=== PATIENT | female | born 1965 | race Caucasian/White ===

== ENCOUNTER 2021-09-25 12:03 | Outpatient (CLI) | payer OTHER, SELFPAY ==
--- NOTE | ~2021-09-25 | XR_ITS ---
EXAMINATION: XR foot RT min 3V DATE: 09/25/2021 12:37 INDICATION: Right foot pain TECHNIQUE: Dorsoplantar, lateral, and 2 oblique views of the right foot were obtained. COMPARISON: 02/10/2010 FINDINGS: There is no fracture, dislocation, or subluxation. Mild osteoarthritis is noted in several interphalangeal joints. Soft tissues are unremarkable. IMPRESSION: 1. No acute osseous abnormality. Reviewed, dictated and finalized at location B. T RELATIONS MANAGER
== END 2021-09-25 12:04 | disposition home or self-care (01) ==
PROVIDERS: PCP Internal Medicine; Visit Provider Orthopaedic Surgery
DX: M79.671 Pain in right foot (principal)
CPT/HCPCS: 73630

== ENCOUNTER 2022-01-25 01:55 | Day surgery (SDC) | payer OTHER, SELFPAY ==
[2022-01-17 12:26] VITALS: BMI 22.9
--- NOTE | 2022-01-17 12:36 | PC.NURSE ---
Report to the Outpatient Waiting Room, entrance under the green pavilion located off [facility], at time 0600 on date 01/25/22. OR Time: 0730. - You and your visitor will be asked a series of questions to screen for COVID 19 for your protection. - A mask is required within the hospital. One visitor will be allowed to accompany the patient into the hospital. Patients visitor will be instructed to remain with patient at all times or leave the building. We will allow the visitor to come back to the postoperative area when patient is ready. Preoperative COVID Testing Requirements: No COVID Test needed if: (proof is required; if not received patient will have Rapid Test prior to entry) - Patient has received COVID Vaccine at least 14 days prior to procedure date or - Patient has positive COVID test result within last 90 days of surgery date. COVID Test needed if above criteria is not met Patients may have clear liquids (water, carbonated beverages, clear teas, apple juice) until 3 hours prior to surgery with a maximum of 20 ounces. - No food from midnight until time of surgery Take the following medications with a SIP of water the morning of surgery: ESTRADIOL, MEDROXYPROGESTERONE Medications to discontinue per physician: VITAMINS/SUPPLEMENTS Date to take last dose: 01/21/22 Please no make-up, nail zambian, hairspray, perfume, deodorant, or body powder the day of surgery. No jewelry (including any body piercings) or valuables the day of surgery, leave them at home. Please take a shower or bath the night before, or the morning of, surgery with an antibacterial soap. Wear comfortable, loose fitting clothing. - Jewelry must be removed prior to entering the operating room. Rings and piercings that are not removed may be cut off. - The hospital will not accept responsibility for valuables. - Please leave all valuables, including medications, at home the day of surgery. If you are going home after surgery, a licensed hog driver must drive you home. - NO public transportation without another adult. - We recommend that an adult stay with you for 24 hours following discharge. - We also recommend that you do not drive, make important decision, drink alcoholic beverages, or take any drugs that were not prescribed by your health care provider for at least 24 hours after your discharge time. Follow any additional instructions given to you from your surgeon. Telephone instructions given to ACE KILPATRICK and asked if any additional questions and then verbalized understanding. Patient advised to call surgeon office or pre surgery nurse liaison [phone] if any additional questions.
--- NOTE | 2022-01-24 12:40 | WPDANESEPPF ---
Anes - Initial Pre Proc Eval Procedure: Operation Date: 01/25/22 07:30 Proposed Procedures p Right Foot Bunionette Correction - Anthony Andrade MD Date/Time: 01/24/22 12:40 Surgeon: Anthony Andrade MD Pre Op Diagnosis: right foot bunionette Patient Data Age: 56 Gender: F Height: 1.65 m Weight: 62.6 kg Allergies Allergy/AdvReac Type Severity Reaction Status Date / Time Sulfa (Sulfonamide Allergy Severe GI UPSET Verified 01/17/22 12:23 Antibiotics) latex Allergy Mild RASH Verified 01/17/22 12:23 erythromycin base AdvReac Severe GI UPSET Verified 01/17/22 12:23 adhesive AdvReac Blister Verified 01/17/22 12:23 Home Medications Medication Instructions Recorded Confirmed Type estradiol 1 mg tablet 1 mg PO DAILY 12/24/19 01/17/22 History medroxyprogesterone 2.5 mg tablet 2.5 mg PO DAILY 12/24/19 01/17/22 History triazolam 0.25 mg tablet 0.25 mg PO .[facility] #90 tablet 06/21/20 01/17/22 Rx ascorbate calcium (vitamin C) 1 tablet PO DAILY 09/29/21 01/17/22 History calcium acetate 1 tablet PO DAILY 09/29/21 01/17/22 History cholecalciferol (vitamin D3) 1 tablet PO DAILY 09/29/21 01/17/22 History multivitamin 1 tablet PO DAILY 09/29/21 01/17/22 History zinc acetate 1 tablet PO DAILY 09/29/21 01/17/22 History Patient hx anesthesia problems: none Family hx anesthesia problems: none Results Review: All pre-operative results and documents have been reviewed as part of the pre-operative evaluation. [facility] Past Medical History Medical History (Updated 01/24/22 @ 12:41 by Cortez Wagner MD) Bunionette of right foot Callus of foot Claustrophobia Hyperlipidemia Metatarsalgia, right foot Surgical History Surgical History History of ankle surgery Plates and screws-1986 Hardware removal -1990 Family History Family History Sibling Family history of malignant neoplasm of brain Family history of lymphoma Social History Social History Smoking status: Former smoker Tobacco type: cigarettes Additional smoking assessment comments: IN EARLY Alcohol intake: current Drinks per week: 6 Substance use: never Substance use type: does not use Living arrangements: with family 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 Informed Consent: The patient's anesthetic plan and its attendant risks and benefits were discussed with the patient/family/POA. Questions were solicited and answers provided to the satisfaction of the patient/family/POA.
[2022-01-25] VITALS (7 sets, daily range): BP systolic 125–152; BP diastolic 60–77; PULSE 80–103; RESP 12–18; TEMP 36–36.2; O2SAT 96–100
--- NOTE | ~2022-01-25 | XR_ITS ---
EXAMINATION: XR surgery orthopedic EXAM DATE: 01/25/2022 08:38 INDICATION: Right bunionectomy correction. TECHNIQUE: Fluoroscopy used during right foot surgery performed by Dr. Anthony Andrade MD. Radiol ogist was not present for the imaging or procedure. Total fluoroscopic time of 3 seconds. The DAP f or this procedure was 0.24 cGycm2. A total of 4 images sent to PACS from the exam. There is no prio r study for comparison. FINDINGS: There is right 5th metatarsal neck osteotomy, overlying surgical defect. Correlate with p omega note. IMPRESSION: Fluoroscopy used during right foot surgery. Reviewed, dictated and finalized at location A. ITAL TECHNICIAN
[2022-01-25] MEDS: LACTATED RINGERS 1,000 ML 30 ML IV CONT ×2 (06:45→08:28)
--- NOTE | 2022-01-25 07:09 | WPDHPUPDATE1 ---
History and Physical Update Update Date/Time: 01/25/22 07:09 History and Physical has been reviewed, including an updated exam of the patient. There are NO changes in the patient's condition. Risks, benefits, and alternatives have been discussed and questions answered. Patient agrees to proceed with procedure.
[2022-01-25] MEDS: ceFAZolin 2 GM/D5W 50 ML 2 GM/50 ML BAG IVPB (07:36)
[2022-01-25] MEDS: ACETAMINOPHEN 500 MG TABLET 1000 MG PO (07:42)
[2022-01-25] MEDS: KETOROLAC 15 MG/ML VIAL (*BKC) IV PUSH (07:42)
--- NOTE | 2022-01-25 07:48 | SUR.PREOP ---
PT COMPLETED AT [facility] ON 01/21/22 PRIOR TO SURGERY FOR SINUS INFECTION. CRUTCH TRAINING AND IS TEACHING DONE.
[2022-01-25] MEDS: BUPIVACAINE HCL 0.5% PF 30 ML VIAL INFILTRATE (07:57)
--- NOTE | 2022-01-25 08:47 | W.PM.PROC2 ---
Procedure Note - Detailed Date of Procedure 01/25/22 Pre-op Diagnosis right foot bunionette Post-op Diagnosis Same Procedure Performed Right foot bunionette correction Surgeon Anthony Andrade MD Benefits Assistant 1st administrative assistant coordinator Anesthesia General Indications 56-year-old woman with a right foot bunionette deformity. Severe pain on the lateral border of the foot as well as a persistent callus on the plantar aspect. Unrelieved with conservative measures. Presents now for operative treatment. Description of Procedure Full discussion of the risks, benefits and alternatives of surgery was had. Questions answered. Informed consent given by the patient. The operative extremity was marked in the preoperative holding area. Patient received intravenous antibiotics. She is brought to the operating room and underwent general anesthetic by the anesthesia team. Positioned supine on the operating room table. Right foot prepped draped usual sterile surgical fashion using a ChloraPrep skin solution. Foot ankle exsanguinated and a calf tourniquet inflated to 250 mmHg. Local anesthetic with 0.5% Marcaine plain. A longitudinal incision made over the lateral eminence of the 5th metatarsal with 15 blade knife. Hemostasis controlled electrocautery. Sensory nerve elements protected. Lateral capsule then exposed. Capsulotomy performed. Lateral eminence resection with the sagittal saw. Chevron shaped osteotomy then performed 5th metatarsal head from lateral to medial. Capital fragment was then translated medially impacted back onto the shaft insuring that we dorsally translated the head to relieve the plantar pressure. Fixation achieved with a 2.0 mm treatment pinned. Image intensification confirmed alignment. Over lying lateral 5th metatarsal removed with sagittal saw on rongeur. Wound thoroughly irrigated with solution. Capsule then closed with 2-0 Vicryl interrupted suture. Subcutaneous tissue repaired with 3-0 Monocryl interrupted suture and skin repaired with 4-0 nylon running suture. Sterile dressings applied. Tourniquet released in good capillary refill noted. Patient awoke from anesthesia, extubated and taken to the recovery room in stable condition. All sponge needle and instrument counts correct the in the case. Implants 2.0 mm trim it Estimated Blood Loss -5.0 Tourniquet Time 40 Drains No Packing No Pathology None sent Complications None Condition Stable Disposition PACU
== END 2022-01-25 09:50 | disposition home or self-care (01) ==
PROVIDERS: PCP Internal Medicine; Visit Provider Orthopaedic Surgery
PROC: (CPT 28299; principal; 2022-01-25 07:30)
DX: M21.621 Bunionette of right foot (principal); M25.571 Pain in right ankle and joints of right foot; M77.41 Metatarsalgia, right foot; Z87.891 Personal history of nicotine dependence
CPT/HCPCS: 28308; A9270; C1713; J0690; J1100; J1885; J2250; J2405; J2704; J3010; J7120

== ENCOUNTER 2022-03-05 12:09 | Outpatient (CLI) | payer OTHER, SELFPAY ==
--- NOTE | ~2022-03-05 | XR_ITS ---
EXAMINATION: XR foot RT min 3V DATE: 03/05/2022 12:20 INDICATION: Lateral right foot surgery TECHNIQUE: Dorsoplantar, oblique and lateral views of the right foot were obtained. COMPARISON: 02/14/2022 FINDINGS: There is small amount of callus formation which does not yet appear solidly bridging associate with a alignment osteotomy at the distal neck of the fifth metatarsal with 2 mm dorsal/medial displacement. There is additional callus formation also not yet solidly bridging at an oblique osteotomy versus fr acture at the mid diaphysis of the fourth metatarsal with 2-3 mm dorsal displacement. No other fractu res identified. Minimal to mild osteoarthritis at a few of the tarsal metatarsal and interphalangeal joints. IMPRESSION: 1. Healing osteotomy at the neck of the fifth metatarsal and healing osteotomy versus fracture at the mid diaphysis of the fourth metatarsal. Reviewed, dictated and finalized at location A.
== END 2022-03-05 12:10 | disposition home or self-care (01) ==
PROVIDERS: PCP Internal Medicine; Visit Provider Orthopaedic Surgery
DX: M79.671 Pain in right foot (principal)
CPT/HCPCS: 73630

== ENCOUNTER 2022-04-02 13:14 | Outpatient (CLI) | payer OTHER, SELFPAY ==
--- NOTE | ~2022-04-02 | XR_ITS ---
EXAM: XR_[id number]_CR HISTORY: Pain in right foot . COMPARISON: 03/05/2022. FINDINGS: Decreased mineralization. No acute fracture or dislocation. Apparent old fractures of the right fourth and fifth metatarsal shafts, with osseous bridging. No lytic or blastic lesion. Plantar enthesopathy. No erosion or periosteal change. Soft tissues within normal limits IMPRESSION: No acute osseous finding in the right foot. Old fractures of the right fourth and fifth m etatarsal shafts, healed in deformity. Reviewed, dictated and finalized at location K. IMPRESSION: No acute osseous finding in the right foot. Old fractures of the ri ght fourth and fifth metatarsal shafts, healed in deformity.
== END 2022-04-02 13:15 | disposition home or self-care (01) ==
PROVIDERS: PCP Internal Medicine; Visit Provider Orthopaedic Surgery
DX: M79.671 Pain in right foot (principal)
CPT/HCPCS: 73630

== ENCOUNTER 2022-08-13 13:44 | Outpatient (CLI) | payer OTHER, SELFPAY ==
--- NOTE | ~2022-08-13 | XR_ITS ---
EXAMINATION: XR foot RT min 3V DATE: 08/13/2022 14:00 INDICATION: Right foot pain TECHNIQUE: Dorsoplantar, two oblique and lateral views of the right foot were obtained. COMPARISON: 04/02/2022 and 03/05/2022 FINDINGS: Interval healing of the diaphyseal fractures of the fourth and fifth metatarsals which remain in near anatomic alignment. No new fractures identified. Minimal to mild osteoarthritis at a few of the tars al metatarsal and interphalangeal joints. No erosions to suggest inflammatory arthritis. Very small p lantar calcaneal spur. Soft tissues are unremarkable. IMPRESSION: 1. Healed diaphyseal fractures of the right fourth and fifth metatarsals in near-anatomic alignment. No acute osseous abnormality. Reviewed, dictated and finalized at location A. IMPRESSION: 1. Healed diaphyseal fractures of the right fourth and fifth metatarsals in lety r-anatomic alignment. No acute osseous abnormality.
== END 2022-08-13 13:45 | disposition home or self-care (01) ==
PROVIDERS: PCP Internal Medicine; Visit Provider Orthopaedic Surgery
DX: S92.341D Displaced fracture of fourth metatarsal bone, right foot, subsequent encounter for fracture with routine healing (principal); S92.351D Displaced fracture of fifth metatarsal bone, right foot, subsequent encounter for fracture with routine healing; X58.XXXD Exposure to other specified factors, subsequent encounter
CPT/HCPCS: 73630

== ENCOUNTER 2022-12-17 13:09 | Outpatient (CLI) | payer OTHER, SELFPAY ==
--- NOTE | ~2022-12-17 | XR_ITS ---
EXAM: XR_FOOTSTNDR3_CR DATE: 12/17/2022 13:22 HISTORY: Follow up . COMPARISON: 04/02/2022. FINDINGS: Decreased mineralization. Old fractures of the fourth and fifth metatarsals, healed in sli ght deformity. No acute fracture or dislocation. No lytic or blastic lesion. Minimal plantar enthesop athy. Joint spaces and physes are maintained. No erosion or periosteal change. Soft tissues within no rmal limits. IMPRESSION: Old fractures of the fourth and fifth metatarsals, healed in slight deformity. Plantar en thesopathy. Reviewed, dictated and finalized at location K. STACK PHP DEVELOPER IMPRESSION: Old fractures of the fourth and fifth metatarsals, healed in slight deformity. Plantar enthesopathy.
== END 2022-12-17 13:10 | disposition home or self-care (01) ==
LOC: ANHBWCIMG 13:10
PROVIDERS: PCP Internal Medicine; Visit Provider Orthopaedic Surgery
DX: M79.671 Pain in right foot (principal); M77.31 Calcaneal spur, right foot
CPT/HCPCS: 73630

== ENCOUNTER 2023-04-03 00:51 | Day surgery (SDC) | payer OTHER, SELFPAY ==
[2023-03-21 08:39] VITALS: BMI 23.4
--- NOTE | 2023-04-02 16:07 | PM.HPGS ---
History of Present Illness History of Present Illness Consent: Risks, benefits, and alternatives have been discussed and questions answered. Patient agrees to proceed with procedure. Chief complaint: family hx of colon polyps and colon cancer Narrative: Adrienne Morgan is a 57 year old female referred for colon cancer screening. Relatives on her mother side of the family have had colon cancer. 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 Encounter for postoperative care Hyperlipidemia Metatarsalgia, right foot Right foot pain Surgical History Surgical History History of ankle surgery Plates and screws-1986 Hardware removal -1990 Family History Family History Sibling Family history of malignant neoplasm of brain Family history of lymphoma Social History Social History Smoking packs per day: 0.25 Smoking cigarettes per day: 5.0 Years smoked: 8 Smoking pack-years: 2.00 Smoking status: Former smoker Tobacco type: cigarettes Additional smoking assessment comments: IN EARLY Alcohol intake: current Drinks per week: 6 Alcohol use details: on occasion Substance use: current Substance use type: marijuana Living arrangements: with family Occupation/Education: occupation 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[place] Gender identity (if verbalized by the patient): Female Spiritual care concerns: No Meds Home Medications and Allergies Home Medications Medication Instructions Recorded Confirmed Type estradiol 1 mg tablet 1 mg PO DAILY 12/24/19 03/21/23 History medroxyprogesterone 2.5 mg tablet 2.5 mg PO DAILY 12/24/19 03/21/23 History triazolam 0.25 mg tablet 0.25 mg PO .[facility] [place] #[facility] tabs 06/21/20 03/21/23 Rx calcium acetate 1 tablet PO DAILY 09/29/21 03/21/23 History cholecalciferol (vitamin D3) 1 tablet PO DAILY 09/29/21 03/21/23 History multivitamin 1 tablet PO DAILY 09/29/21 03/21/23 History Hair, Skin and Nails (biotin) 1 tab-cap PO DAILY 03/21/23 03/21/23 History pghvucp-[id number]-novw 1 tab-cap PO DAILY 03/21/23 03/21/23 History Allergies Allergy/AdvReac Type Severity Reaction Status Date / Time Sulfa (Sulfonamide Allergy Severe GI UPSET Verified 04/03/23 08:22 Antibiotics) latex Allergy Mild RASH Verified 04/03/23 08:22 erythromycin base AdvReac Severe GI UPSET Verified 04/03/23 08:22 adhesive AdvReac Unknown Blister Verified 04/03/23 08:22 Exam Resp: Auscultation: clear to auscultation bilaterally Cardio: Rate: regular rate Rhythm: regular rhythm GI: GI Palp: Yes Soft to palpation and No Tenderness to palpation present (GI) Assessment and Plan Assessment and plan (1) Colon cancer screening: Code(s): Z12.11 - Encounter for screening for malignant neoplasm of colon Status: Acute Assessment and Plan: Colonoscopy with possible biopsy or polypectomy or cautery or injection of substances.
[2023-04-03 08:24] VITALS: BP 143/84; PULSE 80; RESP 18; TEMP 36.3; O2SAT 100
[2023-04-03] MEDS: LACTATED RINGERS 1,000 ML 150 ML IV CONT (08:36)
--- NOTE | 2023-04-03 09:19 | WPDANESEPPF ---
Anes - Initial Pre Proc Eval Procedure: Operation Date: 04/03/23 09:45 Proposed Procedures p Screening Colonoscopy - Huber Mcelroy MD Date/Time: 04/03/23 09:19 Surgeon: Huber Mcelroy MD Pre Op Diagnosis: family hx of colon polyps and colon cancer Patient Data Age: 57 Gender: F Height: 1.65 m Weight: 65.8 kg Last Vital Signs Temp 97.3 F L 04/03/23 08:24 Pulse 80 04/03/23 08:24 Resp 18 04/03/23 08:24 BP 143/84 H 04/03/23 08:24 Pulse Ox 100 04/03/23 08:24 O2 Del Method Room Air 04/03/23 08:24 Allergies Allergy/AdvReac Type Severity Reaction Status Date / Time Sulfa (Sulfonamide Allergy Severe GI UPSET Verified 04/03/23 08:22 Antibiotics) latex Allergy Mild RASH Verified 04/03/23 08:22 erythromycin base AdvReac Severe GI UPSET Verified 04/03/23 08:22 adhesive AdvReac Unknown Blister Verified 04/03/23 08:22 Home Medications Medication Instructions Recorded Confirmed Type estradiol 1 mg tablet 1 mg PO DAILY 12/24/19 03/21/23 History medroxyprogesterone 2.5 mg tablet 2.5 mg PO DAILY 12/24/19 03/21/23 History triazolam 0.25 mg tablet 0.25 mg PO .[facility] #90 tabs 06/21/20 03/21/23 Rx calcium acetate 1 tablet PO DAILY 09/29/21 03/21/23 History cholecalciferol (vitamin D3) 1 tablet PO DAILY 09/29/21 03/21/23 History multivitamin 1 tablet PO DAILY 09/29/21 03/21/23 History Hair, Skin and Nails (biotin) 1 tab-cap PO DAILY 03/21/23 03/21/23 History uvforwv-rxbryqyfy-ounu 1 tab-cap PO DAILY 03/21/23 03/21/23 History Patient hx anesthesia problems: none Family hx anesthesia problems: none Results Review: All pre-operative results and documents have been reviewed as part of the pre-operative evaluation. 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 Encounter for postoperative care Hyperlipidemia Metatarsalgia, right foot Right foot pain Surgical History Surgical History History of ankle surgery Plates and screws-1986 Hardware removal -1990 Family History Family History Sibling Family history of malignant neoplasm of brain Family history of lymphoma Social History Social History Smoking packs per day: 0.25 Smoking cigarettes per day: 5.0 Years smoked: 8 Smoking pack-years: 2.00 Smoking status: Former smoker Tobacco type: cigarettes Additional smoking assessment comments: IN EARLY Alcohol intake: current Drinks per week: 6 Alcohol use details: on occasion Substance use: current Substance use type: marijuana Living arrangements: with family Occupation/Education: occupation 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 Informed Consent: The patient's anesthetic plan and its attendant risks and benefits were discussed with the patient/family/POA. Questions were solicited and answers provided to the satisfaction of the patient/family/POA.
--- NOTE | 2023-04-03 09:24 | SUR.PREOP ---
829: DR TUCKER NOTIFIED PT HAD A HALF OF A BRATWURST YESTERDAY AT 1000, THEN BEGAN CLEAR LIQUID DIET AND BOWEL PREP THE REST OF YESTERDAY, STATES STOOLS ARE LIQUID YELLOW, NO NEW ORDERS RECEIVED, DR TUCKER TO SEE PT.
[2023-04-03 09:54] VITALS: BP 130/80; PULSE 85; RESP 20; O2SAT 100
[2023-04-03 10:04] VITALS: BP 117/71; PULSE 71; RESP 20; O2SAT 100
[2023-04-03 10:14] VITALS: BP 127/73; PULSE 70; RESP 21; O2SAT 100
== END 2023-04-03 10:21 | disposition home or self-care (01) ==
PROVIDERS: PCP Internal Medicine; Visit Provider Internal Medicine Gastroenterology
PROC: 0DJD8ZZ Inspection of Lower Intestinal Tract, Via Natural or Artificial Opening Endoscopic (ICD-10-PCS; CPT 45378; principal; 2023-04-03 09:45)
DX: Z12.11 Encounter for screening for malignant neoplasm of colon (principal); Z83.71 Family history of colonic polyps; E78.5 Hyperlipidemia, unspecified; M62.461 Contracture of muscle, right lower leg; Z87.891 Personal history of nicotine dependence; F40.240 Claustrophobia
CPT/HCPCS: 45378; J2704; J7120

== ENCOUNTER 2023-06-24 12:39 | Outpatient (CLI) | payer OTHER, SELFPAY ==
[2023-06-24 19:01] LABS: Appearance Urine Cloudy (Clear); Bacteria Urine 1+ /hpf; Bilirubin Urine 1+ (Negative); Blood Urine Negative (Negative); Calcium Oxalate Crystals Urine Present /hpf; Color Urine Dark Yellow (Yellow); Glucose Urine UA Negative (Negative); Ketones Urine Trace mg/dL (Negative); Leukocyte Esterase Ur 1+ LEU/UL (Negative); Nitrate Urine Negative (Negative); Non Pathogenic Casts 0-2; Protein Urine Trace mg/dL (Negative); Specific Grav Ur 1.021 (1.001-1.035); Squamous Epithelial Cell Urine Many /hpf (Few); pH Urine 5.5 (5.0-9.0)
[2023-06-24 19:02] LABS: Add Urine Microscopic? YES
== END 2023-06-24 12:40 | disposition home or self-care (01) ==
LOC: ANHBWCLAB 12:41
PROVIDERS: PCP Nurse Practitioner Adult Health; Visit Provider Nurse Practitioner Adult Health
DX: R39.9 Unspecified symptoms and signs involving the genitourinary system (principal)
CPT/HCPCS: 81001; 87086; 87147; 87181; 87186

== ENCOUNTER 2023-07-16 11:34 | Outpatient (CLI) | payer OTHER, SELFPAY ==
[2023-07-16 18:58] LABS: Appearance Urine Clear (Clear); Bilirubin Urine Negative (Negative); Blood Urine Negative (Negative); Color Urine Yellow (Yellow); Glucose Urine UA Negative (Negative); Ketones Urine Trace mg/dL (Negative); Leukocyte Esterase Ur Negative LEU/UL (NEGATIVE); Nitrate Urine Negative (Negative); Protein Urine Negative (Negative); Specific Grav Ur 1.021 (1.001-1.035); Urobilinogen Urine 0.2 mg/dL (<2.0)
[2023-07-16 19:07] LABS: Add Urine Microscopic? NO
== END 2023-07-16 11:35 | disposition home or self-care (01) ==
PROVIDERS: PCP Nurse Practitioner Adult Health; Visit Provider Nurse Practitioner Adult Health
DX: R39.9 Unspecified symptoms and signs involving the genitourinary system (principal)
CPT/HCPCS: 81003

== ENCOUNTER 2024-02-27 14:18 | Outpatient (CLI) | payer OTHER, SELFPAY ==
[2024-02-27 19:03] LABS: Appearance Urine Clear (Clear); Bacteria Urine None Seen /hpf; Bilirubin Urine Negative (Negative); Blood Urine 1+ (Negative); Color Urine Yellow (Yellow); Glucose Urine UA Negative (Negative); Ketones Urine Trace mg/dL (Negative); Leukocyte Esterase Ur Trace LEU/UL (Negative); Nitrate Urine Negative (Negative); Non Pathogenic Casts 0-2; Protein Urine Negative (Negative); RBC Urine 0-2 /hpf (0-2); Specific Grav Ur 1.012 (1.001-1.035); Squamous Epithelial Cell Urine Occasional /hpf (Few); Urobilinogen Urine 0.2 mg/dL (<2.0); WBC Urine 0-5 /hpf (0-3); pH Urine 5.5 (5.0-9.0)
[2024-02-27 19:04] LABS: Add Urine Microscopic? YES
== END 2024-02-27 14:19 | disposition home or self-care (01) ==
LOC: ANHBWCLAB 14:26
PROVIDERS: PCP Nurse Practitioner Adult Health; Visit Provider Nurse Practitioner Adult Health
DX: R39.9 Unspecified symptoms and signs involving the genitourinary system (principal)
CPT/HCPCS: 81001; 87077; 87086; 87088; 87181

== ENCOUNTER 2025-01-25 09:28 | Outpatient (CLI) | payer OTHER, SELFPAY ==
--- OUTSIDE RECORDS SUMMARY | 2025-01-25 10:40 | XMS_ITS | Patient Health Record ---
Author Organization [facility] Address [address] [address] Care Team Providers Care Oil Spot Washer Name Role Phone Darrick Patiño DPM Primary Care Provider REASON FOR REFERRAL No Information SOCIAL HISTORY Sex Assigned At : Social History Observation Description Sex Assigned At Unknown Encounters Encounter Location Date Provider Diagnosis [facility] [address] [place] [address] 12/04/2024 Darrick Patiño DPM PLAN OF TREATMENT No Information
--- OUTSIDE RECORDS SUMMARY | 2025-01-25 10:40 | XMS_ITS | Clinical Summary ---
Author Organization [facility] Address [address] [place] [address] Care Team Providers Care Environmental Solutions Engineer Name Role Phone Lydia Stout MD Unavailable [phone] Earnest Mccall MD Primary Care Provider [phone] Allergies Active Allergy Reactions Criticality Noted Date Comments Erythromycin Latex Medications CALCIUM ORAL Active cholecalciferol (VITAMIN D-3) 1,000 unit daily Active estradiol (ESTRACE) 1 mg tablet TK 1 T PO QD 4 9 Active estradiol-noret hindrone (ACTIVELLA) 0.5-0.1 mg per tablet daily 2 Active medroxyPROGESTE Leonidas (PROVERA) 2.5 mg tablet TK 1 T PO QD HS 4 9 Active multivitamin tablet Active progesterone (PROMETRIUM) 200 mg capsule Activ e triazolam (HALCION) 0.25 mg tablet TK 1 T PO QHS 1 9 Active magnesium gluconate 200 mg tabletIndicatio ns:hypomagnesem ia Take 1.25 tablets (250 mg total) by mouth daily Active diazePAM (VALIUM) 5 mg tablet Take 1 tablet (5 mg total) by mouth as directed Take one 5mg tablet 1 hour prior to MRI. Patient may repeat second dose of 5mg immediately before MRI 2 tablet 2 Active Additional Information Patient not taking.Reported on 05/07/2023 diazePAM (VALIUM) 5 mg tabletIndicatio ns:anxiety Take 1 tablet (5 mg total) by mouth as needed for anxiety Take one tablet 1 hour prior to Imaging, may repeat once. Must have hazardous materials tanker driver while taking medication 2 tablet 4 Active Active Problems Problem Noted Date Diagnosed Date Allergic rhinitis 05/06/2020 Assessment & Plan (05/06/2020 12:04 PM CDT): 64 ounces of Caffeine free and soda free fluid daily Try antihistamine daily (Cetirizine) Zyrtec Try exercises again if symptoms return Try to avoid extra salt Orthostatic hypotension 05/06/2020 Assessment & Plan (05/06/2020 12:29 PM CDT): 64 ounces of Caffeine free and soda free fluid daily Try antihistamine daily (Cetirizine) Zyrtec Try exercises again if symptoms return Try to avoid extra salt Decrease green tea intake 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 Blood in urine 08/18/2014 Calculus of kidney 08/18/2014 Vestibular vertigo 09/16/2013 Epidemic vertigo 07/16/2013 Dizziness 09/30/2012 Assessment & Plan (05/06/2020 12:04 PM CDT): 64 ounces of Caffeine free and soda free fluid daily Try antihistamine daily (Cetirizine) Zyrtec Try exercises again if symptoms return Try to avoid extra salt Encounters Date Type Department Care Team Description 01/01/2025 10:00 AM BLOCK PRESS OPERATOR Telemedicine [facility] Neurosurgery [address] [facility] 6th [place] [address] [place] [address] Mohan Rowell Jr., MD Benign neoplasm of cerebral meninges (HCC) (Primary Dx); Meningioma (HCC) from Last 3 Months Immunizations Immunization Administration Dates Next Due Influenza, Trivalent, Preservative Free, Intramu scular 08/18/2014 Surgical History Surgery Date Site/Laterality Comments ANKLE SURGERY Ankle Surgery - (Added by TW Conv) TUBAL LIGATION Tubal Ligation - (Added by TW Conv) LASIK Corneal LASIK - (Added by TW Conv) AUGMENTATION MAMMAPLASTY 20+ years ago, since then removed BREAST CYST EXCISION Right 15+ years ago, benign Medical History Medical History Date Comments Personal history of other di seases of the digestive system History of constipation - (A dded by TW Conv) Personal history of other di seases of the musculoskeletal system and connective tissue History of backache - (Added by TW Conv) Personal history of other di seases of the musculoskeletal system and connective tissue History of osteopenia - (Add ed by TW Conv) Personal history of other sp ecified conditions History of brain tumor - (Ad ded by TW Conv) Family History Medical History Relation Name Comments Hypertension Father Hypertension - (Added by TW Conv) Hypertension Mother Hypertension - (Added by TW Conv) Diabetes Other 1 Diabetes Mellit us - (Added by TW Conv) Hypertension Other 2 Hypertension - (Added by TW Conv) Relation Name Status Comments Father Mother Other 1 Other 2 Social History Tobacco Use Types Packs/Day Years Used Date Smoking Tobacco: Never Smokeless Tobacco: Never Alcohol Use Standard Drinks/Week Comments Yes 0 (1 standard drink = 0.6 oz pur e alcohol) AUDIT-C Answer Date Recorded Q1: How often do you have a drink containing alc ohol? Monthly or less 07/03/2024 Q2: How many drinks containi ng alcohol do you have on a typical day when you are drinking? 1 or 2 07/03/2024 Q3: How often do you have si x or more drinks on one occasion? Monthly 07/03/2024 Comments No Sex and Gender Information Value Date Recorded Sex Assigned at Not on file Legal Sex Female 9:23 AM BLOCK PRESS OPERATOR Gender Identity Not on file Sexual Orientation Not on file Obstetrics History Para Term AB IAB SAB Ectopic Multiple Livin g Live Births 3 2 2 Date Outcome GA Total Labor Labor/2nd/3rd Weight Sex Type Anes PTL Cierra A1 A5 Name Clin Term Term Last Filed Vital Signs Vital Sign Reading Time Taken Comments Blood Pressure 132/86 07/03/2024 9:01 AM CDT Pulse 75 07/03/2024 9:01 AM CDT Temperature 36.5 C (97.7 F) 05/07/2023 5:12 PM CDT Respiratory Rate 18 07/03/2024 9:01 AM CDT Oxygen Saturation 96% 05/07/2023 5:12 PM CDT Inhaled Oxygen Concentration - - Weight 66.7 kg (147 lb) 07/03/2024 9:01 AM CDT Height 171.5 cm (5' 7.5 ) 07/03/2024 9:01 AM CDT Body Mass Index 22.68 07/03/2024 9:01 AM CDT Plan of Treatment Health Maintenance Due Date Last Done Comments Cervical Cancer Screening 1965 Colon Cancer Screening-Colonoscopy 1965 Depression Screening 1965 Hepatitis C Screening 1965 Hepatitis B Screening 1981 Regular Well Visit/Exam 18-64 1981 DTaP/Tdap/Td Vaccine (1 - Tdap) 05/04/2003 05/03/2003 Zoster Vaccine (1 of 2) 2013 Influenza Vaccine (#1) 2024 08/18/2014 Breast Cancer Screening-Mammogram 07/22/2025 07/22/2024, 05/01/2024, 01/18/2023 Pneumococcal vaccine <65 Aged Out No longer eligible based on patient's age to complete this topic Procedures Procedure Name Priority Date/Time Associated Diagnosis Comments DIAGNOSTIC MAMMOGRAM BILATERAL W ALVARADO Schedule Routine, Read Routine (OP Routine) 07/22/2024 10:01 AM CDT Abnormal mammogram from Last 3 Months or Most Recently Relevant to Health Maintenance Results * Diagnostic Mammogram Bilateral W Alvarado (07/22/2024 10:01 AM CDT) Anatomical Region Laterality Modality Breast Bilateral Mammography 07/22/2024 10:3 4 AM CDT Impressions 07/22/2024 10:34 AM CDT 1. The bilateral breast asymmetries of concern detected on screening mammogram are benign (as detailed above). 2. No mammographic evidence of malignancy in either breast. Screening mammogram in one year is recommended. BI-RADS: 2 - Benign. The patient was notified of these findings and recommendations at the time of the examination. Electronically signed by: Jerad Mohamud M.D. Narrative 07/22/2024 10:34 AM CDT EXAMINATION: DIAGNOSTIC MAMMOGRAM BILATERAL W ALVARADO ORDERING HEALTHCARE PROVIDER: LYDIA STOUT HISTORY: 58-year-old female recalled from screening mammogram for indeterminate findings in both breasts. COMPARISON: Mammograms dated 05/01/2024, 01/18/2023, 07/11/2021, 07/05/2020, and 02/04/2020 TECHNIQUE: Full field CC and LM views and spot compression CC views of the bilateral breasts were obtained with digital technique (both 2-D and using breast tomosynthesis with C view). Computer aided detection was utilized. FINDINGS: BREAST DENSITY: The tissue of the bilateral breasts is heterogeneously dense, which may obscure small masses. MAMMOGRAM FINDINGS: Best seen on the CC view, there is a small oval low-density mass with partially circumscribed, partially obscured margins in the central lower right breast, anterior depth. This mass measures approximately 5-6 mm and is unchanged since January 2020, evidence of a benign etiology based on documented stability of at least 2 years. This correlates with the asymmetry of concern in the subareolar right breast detected on the April 2024 screening mammogram. The asymmetry of concern in the outer right breast, anterior to middle depth, on the CC view detected on the April 2024 screening mammogram effaces with spot compression, evidence of benign summation artifact of normal dense tissue. The asymmetry of concern in the outer left breast, mid to posterior depth, on the CC view detected on the April 2024 screening mammogram also effaces with spot compression, evidence of benign summation artifact of normal dense tissue. There are benign scattered calcifications in both breasts. There is no definite new suspicious finding in either breast on mammogram. Lydia Stout MD IMG MAMMO PROCEDURES Fin al Result from Last 3 Months or Most Recently Relevant to Health Maintenance Insurance [employer] OPEN ACCESS Member Subscriber Plan / Payer (Ef fective 2010-Present) Name:Adrienne Morgan Relation to Subscriber:Spouse Name:FINESSEABILIO Date of :1963 (Home) Address: [address] [place] [id number] Payer ID:[id number] (NAIC) Group ID:[id number] Type:[employer] HMO/PPO Address: [address] [place] [address] CIGNA CIGNA OPEN ACCESS Member Subscriber Plan / Payer (Ef fective 2010-Present) Name:Adrienne Morgan Relation to Subscriber:Spouse Name:FINESSEABILIO Date of :1959 (Home) Address: [address] [place] [phone] Payer ID:[id number] ([facility]) Group ID:[id number] Type:CIGNA HMO/PPO Address: [address] [place] [address] CIGNA Care Teams Environmental Solutions Engineer Relationship Specialty Start Date End Date Earnest Mccall MD [address] [place], [place] [id number] PCP - General Family Practice 01/27/24 Lydia Stout MD [address] [place] [address] Referring Physician Gynecology 12/12/22
--- OUTSIDE RECORDS SUMMARY | 2025-01-25 10:40 | XMS_ITS ---
Author Organization [facility] Address [address] [address] Care Team Providers Care Seat Coverer Name Role Phone Darrick Patiño DPM Primary Care Provider [phone] REASON FOR VISIT carissa feet Encounters Encounter Location Date Provider Diagnosis [facility] [address] [address] 12/04/2024 Darrick Patiño DPM PLAN OF TREATMENT No Information
--- OUTSIDE RECORDS SUMMARY | 2025-01-25 10:40 | XMS_ITS | Referral Summary ---
Author Organization [facility] Address [address] [place] [address] Care Team Providers Care Welding Machine Assembler Name Role Phone Lydia Stout MD Unavailable [phone] Earnest Mccall MD Primary Care Provider [phone] Encounters Date Type Department Care Team Description 01/01/2025 10:00 AM EQUIPMENT TECHNICIAN Telemedicine [facility] [address] [facility] 6th [place] [address] [place] [address] Mohan Rowell Jr., MD Benign neoplasm of cerebral meninges (HCC) (Primary Dx); Meningioma (HCC) from Last 3 Months Allergies Active Allergy Reactions Criticality Noted Date [...] to Imaging, may repeat once. Must have stunt driver while taking medication 2 tablet 4 [...] symptoms return Try to avoid extra salt Immunizations Immunization Administration Dates Next Due Influenza, Trivalent, Preservative Free, Intramu scular 08/18/2014 Social History Tobacco Use Types Packs/Day Years [...] on file Legal Sex Female 9:23 AM EQUIPMENT TECHNICIAN Gender Identity Not on file Sexual Orientation Not on file Last Filed Vital Signs Vital Sign Reading [...] 07/03/2024 9:01 AM CDT Plan of Treatment Not on file Procedures Procedure Name Priority Date/Time Associated Diagnosis [...] Most Recently Relevant to Health Maintenance Insurance [facility] OPEN ACCESS Member Subscriber Plan / Payer (Ef fective 2010-Present) Name:Adrienne Kilpatrick Relation to Subscriber:Spouse Name:ABILIO KILPATRICK Date of :1963 (Home) Address: [address] [place] [address] Payer ID:[id number] (NA) Group ID:[id number] Type:CIGNA HMO/PPO Address: [address] [place] [address] CIGNA CIGNA OPEN ACCESS Member Subscriber Plan / Payer (Ef fective 2010-Present) Name:Adrienne Kilpatrick Relation to Subscriber:Spouse Name:ABILIO KILPATRICK Date of :1959 (Home) Address: [address] [place] [id number] Payer ID:[id number] ([facility]) Group ID:[id number] Type:CIGNA HMO/PPO Address: [address] [place] [address] CIGNA Care Teams Welding Machine Assembler Relationship Specialty Start Date End Date Earnest Mccall MD [address] [place] [address] PCP - General Family Practice 01/27/24 Lydia Stout MD [address] [place] [address] Referring Physician Gynecology 12/12/22
[2025-01-25 18:45] LABS: Hematocrit 46.3 % (37.0-47.0); Mean Corpuscular HGB Conc 32.4 g/dl (32-36); Mean Corpuscular Hemoglobin 33.3 pg (26-34); Mean Corpuscular Volume 102.7 fl (80-100); Mean Platelet Volume 10.9 fl (7.4-10.4); Platelet Count Result 433 k/mm3 (150-375); Red Blood Count 4.51 M/mm3 (4.2-5.4); Red Cell Distribution Width 13.2 % (11.5-14.5); White Blood Count 9.3 K/mm3 (4.5-10.0)
[2025-01-25 18:58] LABS: Alanine Aminotransferase 72 U/L (6-35); Albumin Level 4.7 g/dL (3.5-5.1); Alkaline Phosphatase 107 U/L (38-126); Anion Gap 11 mmol/L (4-12); Aspartate Amino Transferase 152 U/L (14-36); Blood Urea Nitrogen 8 mg/dL (7-17); Calcium 9.9 mg/dL (8.4-10.2); Carbon Dioxide 23 mmol/L (22-30); Chloride 102 mmol/L (98-107); Cholesterol 324 mg/dL (0-200); Estimated Glomerular Filt Rate > 60; Glucose 123 mg/dL (65-110); HDL Direct 45 mg/dL; Potassium 4.1 mmol/L (3.4-5.0); Sodium 136 mmol/L (137-145); Triglycerides 208 mg/dL (<150)
[2025-01-25 19:09] LABS: LDL Cholesterol Direct 230 mg/dL
[2025-01-25 19:26] LABS: Thyroid Stimulating Hormone 0.915 uIU/mL (0.465-4.680); Total Triiodothyronine (T3) 1.64 NG/ML (0.97-1.69)
[2025-01-25 20:06] LABS: Free T4 Free Thyroxine 1.73 ng/dL (0.78-2.19)
== END 2025-01-25 09:29 | disposition home or self-care (01) ==
PROVIDERS: PCP Nurse Practitioner Adult Health; Visit Provider Nurse Practitioner Adult Health
DX: L65.9 Nonscarring hair loss, unspecified (principal); E78.5 Hyperlipidemia, unspecified; Z13.9 Encounter for screening, unspecified
CPT/HCPCS: 36415; 80053; 80061; 84439; 84443; 84480; 85027

== ENCOUNTER 2025-02-01 08:25 | Outpatient (CLI) | payer OTHER, SELFPAY ==
--- OUTSIDE RECORDS SUMMARY | 2025-02-01 08:49 | XMS_ITS ---
Author Organization [facility] Address [address] [address] Care Team Providers Care Superintendent Oil Well Services Name Role Phone Darrick Patiño DPM Primary Care Provider [phone] REASON FOR VISIT carissa feet Encounters Encounter Location Date Provider Diagnosis [facility] [address] [address] 12/04/2024 Darrick Patiño DPM PLAN OF TREATMENT No Information
--- OUTSIDE RECORDS SUMMARY | 2025-02-01 08:49 | XMS_ITS | Referral Summary ---
Author Organization [facility] Address [address] [place] [address] Care Team Providers Care Supervisor Type Bar And Segment Name Role Phone Lydia Stout MD Unavailable Earnest Mccall MD Primary Care Provider [phone] Encounters Date Type Department Care Team Description 01/01/2025 10:00 AM AUTOMOTIVE TECHNOLOGY INSTRUCTOR Telemedicine [facility] Neurosurgery [address] [facility] 6th [place] [address] [place] [address] Mohan Rowell Jr., MD Benign [...] to Imaging, may repeat once. Must have pile driver while taking medication 2 tablet 4 [...] on file Legal Sex Female 9:23 AM AUTOMOTIVE TECHNOLOGY INSTRUCTOR Gender Identity Not on file Sexual Orientation [...] Most Recently Relevant to Health Maintenance Insurance [facility] OPEN ACCESS Member Subscriber Plan / Payer (Ef fective 2010-Present) Name:Adrienne Kilpatrick Relation to Subscriber:Spouse Name:FINESSEJACQUE Date of :1963 (Home) Address: [address] [place] [address] Payer ID:[id number] (NA) Group ID:[id number] Type:CIGNA HMO/PPO Address: [address] [place] [address] CIGNA CIGNA OPEN ACCESS Member Subscriber Plan / Payer (Ef fective 2010-Present) Name:Adrienne Kilpatrick Relation to Subscriber:Spouse Name:JACQUE KILPATRICK Date of :1959 (Home) Address: [address] [place] [id number] Payer ID:[id number] ([facility]) Group ID:[id number] Type:CIGNA HMO/PPO Address: [address] [place] [address] CIGNA Care Teams Supervisor Type Bar And Segment Relationship Specialty Start Date End Date Earnest Mccall MD [address] [place], [place] [id number] PCP - General Family Practice 01/27/24 Lydia Stout MD [address] [place] [address] Referring Physician Gynecology 12/12/22
--- OUTSIDE RECORDS SUMMARY | 2025-02-01 08:49 | XMS_ITS | Clinical Summary ---
Author Organization [facility] Address [address] [place] [address] Care Team Providers Care Sql Data Architect Name Role Phone Lydia Stout MD Unavailable [phone] Earnest Mccall MD Primary Care Provider [phone] Allergies Active Allergy Reactions Criticality Noted Date [...] to Imaging, may repeat once. Must have truck driver's offsider while taking medication 2 tablet 4 Active [...] Department Care Team Description 01/01/2025 10:00 AM WAREHOUSE ASSEMBLY WORKER Telemedicine [facility] Neurosurgery [address] [facility] 6th [place] [address] [place] [address] Mohan Rowell Jr., MD Benign neoplasm of [...] History of constipation - (A dded by SADNRA Conv) Personal history of other di seases [...] on file Legal Sex Female 9:23 AM WAREHOUSE ASSEMBLY WORKER Gender Identity Not on file Sexual Orientation [...] Most Recently Relevant to Health Maintenance Insurance [employer] OPEN ACCESS Member Subscriber Plan / Payer (Ef fective 2010-Present) Name:Adrienne Kilpatrick Relation to Subscriber:Spouse Name:JACQUE KILPATRICK Date of :1963 (Home) Address: [address] [place] [address] Payer ID:[id number] (NAIC) Group ID:[id number] Type:RICH HMO/PPO Address: [facility] [address] [place] [address] CIGNA CIGNA OPEN ACCESS Member Subscriber Plan / Payer (Ef fective 2010-Present) Name:Adrienne Kilpatrick Relation to Subscriber:Spouse Name:FINESSEJACQUE Date of :1959 (Home) Address: [address] [place] [phone] Payer ID:[id number] ([facility]) Group ID:[id number] Type:CIGNA HMO/PPO Address: [facility] [address] [place] [address] CIGNA Care Teams Sql Data Architect Relationship Specialty Start Date End Date Earnest Mccall MD [address] [place] [address] PCP - General Family Practice 01/27/24 Lydia Stout MD [address] [place] [address] Referring Physician Gynecology 12/12/22
--- OUTSIDE RECORDS SUMMARY | 2025-02-01 08:49 | XMS_ITS | Patient Health Record ---
Author Organization [facility] Address [address] [address] Care Team Providers Care Senior Sales Manager Name Role Phone Darrick Patiño DPM Primary Care Provider [phone] REASON FOR REFERRAL No Information SOCIAL HISTORY Sex Assigned At : Social History Observation Description Sex Assigned At Unknown Encounters Encounter Location Date Provider Diagnosis [facility] [address] [place] [address] 12/04/2024 Darrick Patiño DPM PLAN OF TREATMENT No Information
[2025-02-01 20:02] LABS: Hepatitis B Surface Antigen Negative (Negative)
[2025-02-01 20:08] LABS: HAV RESULT Negative (Negative); Hepatitis B Core IgM Result Negative (Negative)
[2025-02-01 20:20] LABS: Hepatitis C Virus Antibody Negative (Negative)
== END 2025-02-01 08:26 | disposition home or self-care (01) ==
PROVIDERS: PCP Nurse Practitioner Adult Health; Visit Provider Nurse Practitioner Adult Health
DX: R74.8 Abnormal levels of other serum enzymes (principal); R73.9 Hyperglycemia, unspecified
CPT/HCPCS: 36415; 80074; 83036

== ENCOUNTER 2025-03-01 09:10 | Outpatient (CLI) | payer OTHER, SELFPAY ==
--- OUTSIDE RECORDS SUMMARY | 2025-03-01 09:49 | XMS_ITS | Referral Summary ---
Author Organization [facility] Address [address] [place] [id number] Care Team Providers Care Pot Holder Binder Name Role Phone Lydia Stout MD Unavailable [phone] Earnest Mccall MD Primary Care Provider [phone] Encounters Date Type Department Care Team Description 02/23/2025 8:30 AM CDT Office Visit [facility] Sports Medicine and Primary Care at [address] [place] [id number] Dev Langford DO Tendinopathy of left gluteus medius (Primary Dx) 02/01/2025 8:57 AM CDT - 02/01/2025 11:59 PM CDT Hospital Encounter [facility] [address] [place] [phone] Abnormal levels of other serum enzymes; Fatty (change of) liver, not elsewhere classified Discharge Disposition: Discharge to home or self care 01/01/2025 10:00 AM BUSINESS PLANNING MANAGER Telemedicine [facility] [address] [place] [address] 6th [place] [address] [place] [address] Mohan Rowell Jr., MD Benign [...] immediately before MRI 2 tablet 2 Active diazePAM (VALIUM) 5 mg tabletIndicatio ns:anxiety Take 1 tablet (5 mg total) by mouth as needed for anxiety Take one tablet 1 hour prior to Imaging, may repeat once. Must have corporate driver while taking medication 2 tablet 4 Active meloxicam (MOBIC) 15 mg tabletIndicatio ns:Tendinopathy of left gluteus medius Take 1 tablet (15 mg total) by mouth daily 60 tablet 5 04/24/20 25 Active Active Problems Problem Noted Date Diagnosed [...] Date Smoking Tobacco: Never Smokeless Tobacco: Never Tobacco Cessation:Counseling Given: Not Answered Alcohol Use Standard Drinks/Week Comments Yes 0 [...] on file Legal Sex Female 9:23 AM BUSINESS PLANNING MANAGER Gender Identity Not on file Sexual Orientation Not on file Last Filed Vital Signs Vital Sign Reading Time Taken Comments Blood Pressure 135/81 02/23/2025 8:30 AM CDT Pulse 78 02/23/2025 8:30 AM CDT Temperature 36.5 C (97.7 F) 05/07/2023 5:12 PM CDT Respiratory Rate 16 02/23/2025 8:30 AM CDT Oxygen Saturation 96% 05/07/2023 5:12 PM CDT Inhaled Oxygen Concentration - - Weight 68 kg (150 lb) 02/23/2025 8:30 AM CDT Height 165.1 cm (5' 5 ) 02/23/2025 8:30 AM CDT Body Mass Index 24.96 02/23/2025 8:30 AM CDT Plan of Treatment Not on file Procedures Procedure Name Priority Date/Time Associated Diagnosis Comments US ABDOMEN LIMITED Schedule Routine, Read Routine (OP Routine) 02/01/2025 9:43 AM CDT Abnormal levels of other serum enzymes Fatty (change of) liver, not elsewhere classified DIAGNOSTIC MAMMOGRAM BILATERAL W [place] Schedule Routine, Read Routine (OP Routine) 07/22/2024 10:01 AM CDT Abnormal mammogram from Last 3 Months or Most Recently Relevant to Health Maintenance Results * US Abdomen Limited (02/01/2025 9:43 AM CDT) Anatomical Region Laterality Modality Abdomen N/A Ultrasound 02/06/2025 12:4 0 AM CDT Narrative 02/06/2025 12:42 AM CDT EXAM DESCRIPTION: US ABDOMEN LIMITED REASON FOR STUDY: Abnormally elevated liver enzymes TECHNIQUE: Ultrasound of the right upper quadrant of the abdomen was performed with grayscale and color doppler. COMPARISON: None FINDINGS: PANCREAS: Visualized portions of the pancreas are within normal limits. Portions of the pancreatic body and tail are obscured due to bowel gas. LIVER: The liver demonstrates an increase in echotexture with attenuation of the ultrasound beam characteristic of fatty infiltration. No cystic or solid mass lesions were seen within the liver. The liver measures 15 cm in greatest diameter. GALLBLADDER: The gallbladder appears unremarkable. No cholelithiasis. No gallbladder wall thickening or pericholecystic fluid. No positive sonographic [place] sign reported. BILIARY: There is no intrahepatic or extrahepatic biliary ductal dilatation. Common bile duct measures 3 mm in diameter. RIGHT KIDNEY: Normal size. Normal echogenicity. 2 cm right renal cyst. No hydronephrosis. Measures 9.6 cm in length. OTHER: No other significant findings. IMPRESSION: Fatty infiltration of the liver. Normal gallbladder. 2 cm right renal cyst. THIS IS AN ELECTRONICALLY VERIFIED FINAL REPORT 02/06/2025 12:42 AM - Electronically signed by Jaylan Bernstein M.D. KT: LISA Report ID: [id number] Reading Location: [id number] Procedure Note Jaylan Bernstein MD - 02/06/2025 EXAM DESCRIPTION: US ABDOMEN LIMITED REASON FOR STUDY: Abnormally elevated liver enzymes TECHNIQUE: Ultrasound of the right upper quadrant of the abdomen wasperformed with grayscale and color doppler. COMPARISON: None FINDINGS: PANCREAS: Visualized portions of the pancreas are within normal limits. Portions of the pancreatic body and tail are obscured due to bowel gas. LIVER: The liver demonstrates an increase in echotexture withattenuation of the ultrasound beam characteristic of fatty infiltration. No cystic orsolid mass lesions were seen within the liver. The liver measures 15 cm ingreatest diameter. GALLBLADDER: The gallbladder appears unremarkable. No cholelithiasis.No gallbladder wall thickening or pericholecystic fluid. No positivesonographic [place] sign reported. BILIARY: There is no intrahepatic or extrahepatic biliary ductaldilatation. Common bile duct measures 3 mm in diameter. RIGHT KIDNEY: Normal size. Normal echogenicity. 2 cm right renal cyst.No hydronephrosis. Measures 9.6 cm in length. OTHER: No other significant findings. IMPRESSION: Fatty infiltration of the liver. Normal gallbladder. 2 cm right renal cyst. THIS IS AN ELECTRONICALLY VERIFIED FINAL REPORT 02/06/2025 12:42 AM - Electronically signed by Jaylan Bernstein M.D. KT: LISA Report ID: [id number] Reading Location: [place] [address] Kelly Nolen NP IM US PROCEDURES Final Result * Diagnostic Mammogram Bilateral W [place] (07/22/2024 [...] Most Recently Relevant to Health Maintenance Insurance [employer] OPEN ACCESS Member Subscriber Plan / Payer (Ef fective 2010-Present) Name:Adrienne Morgan Relation to Subscriber:Spouse Name:FINESSEJACQUE Date of :1963 (Home) Address: [address] [place] [id number] Payer ID:[id number] ([employer]IC) Group ID:[id number] Type:CIHINA HMO/PPO Address: [address] [place] [address] [employer]IGNA CIGNA OPEN ACCESS Member Subscriber Plan / Payer (Ef fective 2010-Present) Name:Adrienne Morgan Relation to Subscriber:Spouse Name:FINESSEJACQUE Date of :1959 (Home) Address: [address] [place] [id number] Payer ID:[id number] ([facility]) Group ID:[id number] Type:CIGNA HMO/PPO Address: [facility] [address] [place] [address] CIG[employer] Care Teams Pot Holder Binder Relationship Specialty Start Date End Date Earnest Mccall MD [address] [place], [place] [id number] PCP - General Family Practice 01/27/24 Lydia Stout MD [address] [place] [address] Referring Physician Gynecology 12/12/22
--- OUTSIDE RECORDS SUMMARY | 2025-03-01 09:49 | XMS_ITS | Clinical Summary ---
Author Organization [facility] Address [address] [place] [address] Care Team Providers Care Public Relations Analyst Name Role Phone Lydia Stout MD Unavailable [phone] Earnest Mccall MD Primary Care Provider [phone] Allergies Active Allergy Reactions Criticality Noted Date [...] Imaging, may repeat once. 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 2 tablet 4 [...] Description 02/23/2025 8:30 AM CDT Office Visit [facility] Sports Medicine and Primary Care at [address] [place] [address] Dev Langford DO Tendinopathy of left gluteus medius (Primary Dx) 02/01/2025 8:57 AM CDT - 02/01/2025 11:59 PM CDT Hospital Encounter [facility] [address] [place] [phone] Abnormal levels of other serum enzymes; Fatty (change of) liver, not elsewhere classified Discharge Disposition: Discharge to home or self care 01/01/2025 10:00 AM SOCIAL SERVICES ANALYST Telemedicine [facility] Neuro[facility] 6th [place] [address] [place] [address] Mohan Rowell Jr., MD Benign neoplasm of [...] History of constipation - (A dded by Conv) Personal history of other di seases [...] on file Legal Sex Female 9:23 AM SOCIAL SERVICES ANALYST Gender Identity Not on file Sexual Orientation [...] 02/23/2025 8:30 AM CDT Plan of Treatment Health Maintenance Due Date Last Done Comments Cervical Cancer Screening 1965 Colon Cancer Screening-Colonoscopy 1965 Depression Screening 1965 Hepatitis C Screening 1965 Hepatitis B Screening 1981 Regular Well Visit/Exam 18-64 1981 DTaP/Tdap/Td Vaccine (1 - Tdap) 05/04/2003 05/03/2003 Zoster Vaccine (1 of 2) 2013 Influenza Vaccine (Season Ended) 2025 08/18/2014 Breast Cancer Screening-Mammogram 07/22/2025 07/22/2024, 05/01/2024, 01/18/2023 Pneumococcal vaccine <65 Aged Out No longer eligible based on patient's age to complete this topic Procedures Procedure Name Priority Date/Time Associated Diagnosis Comments US ABDOMEN LIMITED Schedule Routine, Read Routine (OP Routine) 02/01/2025 9:43 AM CDT Abnormal levels of other serum enzymes Fatty (change of) liver, not elsewhere classified DIAGNOSTIC MAMMOGRAM BILATERAL W [place] Schedule Routine, Read Routine (OP Routine) 07/22/2024 [...] thickening or pericholecystic fluid. No positive sonographic [place] sign reported. BILIARY: There is no intrahepatic [...] Jaylan Bernstein M.D. KT: LISA Report ID: [id number] Reading Location: [place] [address] Procedure Note Jaylan Bernstein MD - 02/06/2025 [...] wall thickening or pericholecystic fluid. No positivesonographic [place] sign reported. BILIARY: There is no intrahepatic [...] Jaylan Bernstein M.D. KT: LISA Report ID: [id number] Reading Location: [id number] Kelly Nolen NP IMG US PROCEDURES Final Result * Diagnostic Mammogram Bilateral W [place] (07/22/2024 10:01 AM CDT) Anatomical Region Laterality [...] AM CDT EXAMINATION: DIAGNOSTIC MAMMOGRAM BILATERAL W QU[place] ORDERING HEALTHCARE PROVIDER: LYDIA STOUT HISTORY: 58-year-old [...] Most Recently Relevant to Health Maintenance Insurance [employer] OPEN ACCESS Member Subscriber Plan / Payer (Ef fective 2010-Present) Name:Adrienne Kilpatrick Relation to Subscriber:Spouse Name:FINESSEJACQUE Date of :1963 (Home) Address: [address] [place] [id number] Payer ID:[id number] (NAIC) Group ID:[id number] Type:RICH HMO/PPO Address: [facility] [address] [place] [address] [employer] OPEN ACCESS Member Subscriber Plan / Payer (Ef fective 2010-Present) Name:Adrienne Kilpatrick Relation to Subscriber:Spouse Name:JACQUE KILPATRICK Date of :1959 (Home) Address: [address] [place] [id number] Payer ID:[id number] ([facility]) Group ID:[id number] Type:CIGNA HMO/PPO Address: [address] [place] [address] CIGNA Care Teams Public Relations Analyst Relationship Specialty Start Date End Date Earnest Mccall MD [address] [place] [place] [id number] PCP - General Family Practice 01/27/24 Lydia Stout MD [address] [place], [place] [id number] Referring Physician Gynecology 12/12/22
[2025-03-01 20:26] LABS: Cholesterol 172 mg/dL (0-200); HDL Direct 43 mg/dL; Triglycerides 158 mg/dL (<150)
[2025-03-01 20:37] LABS: LDL Cholesterol Direct 96 mg/dL
[2025-03-01 21:37] LABS: Hemoglobin A1C 5.7 % (<5.7)
== END 2025-03-01 09:11 | disposition home or self-care (01) ==
PROVIDERS: PCP Nurse Practitioner Adult Health; Visit Provider Nurse Practitioner Adult Health
DX: E78.5 Hyperlipidemia, unspecified (principal); R73.9 Hyperglycemia, unspecified
CPT/HCPCS: 36415; 80061; 83036